=== PATIENT | male | born 1980 | race Caucasian/White ===

== ENCOUNTER 2016-10-05 08:48 | Emergency (ER) | payer OTHER ==
[2016-10-05 09:39] LABS: EOS # 0.1 K/mm3 (0.0-0.50); LARGE UNSTAINED CELL # 0.1 K/mm3 (0.0-0.4); NEUTROPHILS % 72.3 % (36.0-66.0); PLATELET COUNT, AUTOMATED 110 k/mm3 (150-450)
[2016-10-05 09:45] LABS: WHITE BLOOD COUNT 5.2 K/mm3 (4.0-10.0)
[2016-10-05 09:46] LABS: EOS % 1.1 % (0.0-3.0); LARGE UNSTAINED CELL % 2.4 % (0.0-4.0); LYMPH # 0.9 K/mm3 (1.5-4.5); LYMPH % 16.5 % (24.0-44.0); MEAN CORPUSCULAR HEMOGLOBIN 38.3 pg (27.0-33.0); MEAN CORPUSCULAR HGB CONC 36.3 g/dl (32.0-36.5); MEAN CORPUSCULAR VOLUME 105.6 fl (80.0-96.0); MONO % 6.7 % (0.0-5.0); NEUTROPHILS # 3.8 K/mm3 (1.8-7.7); RED CELL DISTRIBUTION WIDTH 15.7 % (11.5-14.5)
[2016-10-05 09:47] LABS: BASO # 0.1 K/mm3 (0.0-0.2); MONO # 0.4 K/mm3 (0.0-0.8)
--- NOTE | 2016-10-05 09:55 | REP ---
CT Head without contrast HISTORY: Trauma COMPARISON: None There is no intraparenchymal hemorrhage, acute infarct, mass or midline shift. The ventricular system is normal in appearance. There is no extra cerebral collection. There is no fracture. The visualized sinuses are clear. IMPRESSION: There is no intracranial lesion. Signed by Xu Alves MD 10/05/2016 09:46 A
[2016-10-05 09:59] LABS: ANION GAP 9 MEQ/L (8-16); BLOOD UREA NITROGEN 12 MG/DL (7-18); CALCIUM LEVEL 8.8 MG/DL (8.5-10.1); CARBON DIOXIDE LEVEL 30 MEQ/L (21-32); CHLORIDE LEVEL 99 MEQ/L (98-107); CREATININE FOR GFR 0.79 MG/DL (0.70-1.30); GLOMERULAR FILTRATION RATE > 60.0 (>60); GLUCOSE, FASTING 129 MG/DL (70-105); POTASSIUM SERUM 2.7 MEQ/L (3.5-5.1); SODIUM LEVEL 138 MEQ/L (136-145)
[2016-10-05] MEDS ORDERED: OXAZEPAM 15 MG CAP As Ordered ONE (10:18)
[2016-10-05 10:20] LABS: ALBUMIN 3.6 GM/DL (3.2-5.2); ALBUMIN/GLOBULIN RATIO 1.09 (1.00-1.93); ALKALINE PHOSPHATASE 100 U/L (45-117); ALT/SGPT 47 U/L (12-78); AST/SGOT 126 U/L (15-37); BILIRUBIN,DIRECT 0.7 MG/DL (0.0-0.2); BILIRUBIN,TOTAL 2.2 MG/DL (0.2-1.0); MAGNESIUM LEVEL 1.6 MG/DL (1.8-2.4); TOTAL PROTEIN 6.9 GM/DL (6.4-8.2)
[2016-10-05] MEDS ORDERED: KCL 10MEQ IN STERILE WATER 100ML As Ordered ONE (10:28)
[2016-10-05] MEDS ORDERED: POTASSIUM CHLORIDE 10 MEQ SR TABLET As Ordered ONE (10:29)
[2016-10-05 10:53] LABS: AMPHETAMINES LEVEL URINE NEGATIVE (NEGATIVE); BENZODIAZEPINES URINE NEGATIVE (NEGATIVE); COCAINE METABOLITE URINE NEGATIVE (NEGATIVE); CONTROL LINE INT CTR LINE PRESENT; METHADONE URINE NEGATIVE (NEGATIVE); OPIATES URINE NEGATIVE (NEGATIVE); TRICYCLIC ANTIDEPRESS URINE NEGATIVE (NEGATIVE)
[2016-10-05] MEDS ORDERED: MAGNESIUM SULFATE 1 GM/100 ML D5W BAG (10MG/ML) (J3475) As Ordered ONE (11:37)
[2016-10-05] MEDS ORDERED: THIAMINE HCL 200 MG/2 ML VIAL (J3411) As Ordered ONE (11:37)
--- NOTE | 2016-10-05 13:01 | ECGEPIP ---
Stationary ECG Study [facility] - ED Test Date: 2016-10-05 Pat Name: CALEB BARBOSA Department: Room: - Gender: M Pediatric Oncologist: kenia : 1980 Requested By: Audrey Loomis Order Number: [id number] Reading MD: Jose Hill Measurements Intervals [place] Rate: 89 P: 61 DE: 160 QRS: 17 QRSD: 108 T: 32 QT: 365 QTc: 446 Interpretive Statements SINUS RHYTHM Electronically Signed On 10-05-2016 13:01:30 EST by Jose Hill
--- NOTE | 2016-10-05 14:13 | EDDOCDS ---
Nurse's Notes [facility] Name: Caleb Barbosa Age: 36 yrs Sex: Male : 1980 Arrival Date: 10/05/2016 Time: 08:48 Bed 8 Private MD: MIBola GARCIA Diagnosis: Hypokalemia;Hypomagnesemia;Anemia, unspecified Presentation: 10/05 09:07 Presenting complaint: EMS states: called to patient's work. Pt allegedly "passed out". jc4 Adult Sepsis Screening: The patient does not have new or worsening altered mentation. Patient's respiratory rate is less than 22. Systolic blood pressure is greater than 100. Patient has a qSOFA score of 0- Negative Sepsis Screen. Suicide/Homicide risk assessment- the patient denies having any suicidal and/or homicidal ideations and does not present with any other emotional, behavioral or mental health complaints. Status: Patient is not a food services coordinator or dependent. Transition of care: patient was not received from another setting of care. Care prior to arrival: Saline lock initiated. Glucose check. 187 mg/dl. 09:07 Acuity: SARA Level 3 jc4 09:07 Method Of Arrival: Ambulance jc4 Triage Assessment: 09:09 General: Appears in no apparent distress. General: Pt states, "I woke up with someone jc4 from my duty looking at me. I've been on duty since yesterday morning". Pain: Denies pain. The patient is triaged at the bedside. See Assessment in Nurses Notes section of ED record. 14:12 HIV screening NA for this visit Offered previously. bcj Historical: - Allergies: no known allergies; - Home Meds: 1. none - PMHx: none; - PSHx: Appendectomy; - Social history: Smoking status: Chewing Tobacco No barriers to communication noted, The patient speaks fluent Syriac. - Family history: Not pertinent. - : The pt / caregiver states he / she is not on anticoagulants. Home medication list is obtained from the patient. - Exposure Risk Screening:: None identified. Screenin:11 Screening information is obtained from the patient. Fall risk: No risks identified. jc4 Assistance ADL's: requires no assistance with activities of daily living. Abuse/DV Screen: The patient / caregiver reports he/she is: not in a situation that causes fear, pain or injury. Nutritional screening: No deficits noted. Advance Directives: Currently, there is a health care proxy, Yaneth Barbosa, . home support is adequate. Assessment: 09:30 General: Appears in no apparent distress, comfortable, Behavior is cooperative. Pain: bcj Denies pain. Neurological: Level of Consciousness is awake, alert, Oriented to person, place, time, Residential Assistant are equal bilaterally Moves all extremities. Speech is normal, Facial symmetry appears normal, Pupils are PERRLA. Cardiovascular: Rhythm is sinus rhythm. Derm: Skin is pink, warm & dry. 10:43 General: Appears in no apparent distress, comfortable, Behavior is cooperative. Pain: bcj Denies pain. Neurological: Level of Consciousness is awake, alert, Oriented to person, place, time, Residential Assistant are equal bilaterally Moves all extremities. Gait is steady, Speech is normal. Cardiovascular: Rhythm is sinus rhythm. Derm: Skin is pink, warm & dry. 11:19 General: Appears in no apparent distress, comfortable, Behavior is cooperative. Pain: bcj Denies pain. Neurological: Level of Consciousness is awake, alert. Cardiovascular: Rhythm is sinus rhythm. Derm: Skin is pink, warm & dry. 14:08 General: Appears in no apparent distress, comfortable, Behavior is cooperative. Pain: bcj Denies pain. Neurological: Level of Consciousness is awake, alert, Oriented to person, place, time. Cardiovascular: Rhythm is sinus rhythm. Derm: Skin is pink, warm & dry. Social Work Consult: 13:46 Social Work Note: PSA met with pt at bedside. Pt reports drinking 4 shots of whiskey cs daily, since [facility], 9 years, has 2 young boys 1 YO and 3 YO, no DWI, no eye chalker soles, would say he has a problem, and he has never looked for professional help. Pt reports he does not believe his drinking is a problem at this time, and would at least take the referral sheet offered to him. Safe DC home , no safety issues noted at this time, support extended. Vital Signs: 08:59 BP 161 / 97; Pulse 103; Resp 18; Temp 99.8(TE); Pulse Ox 97% on R/A; Weight 83.46 kg rn1 (R); Height 75 in. (190.50 cm); Pain 0/10; 10:20 BP 155 / 91 (auto/); bcj 10:20 Pulse 82 MON; Pulse Ox 96% ; bcj 10:35 BP 158 / 92 (auto/); bcj 10:35 Pulse 86 MON; Pulse Ox 97% ; bcj 14:08 BP 139 / 79; Pulse 89; Resp 16; Temp 98.2(O); Pulse Ox 98% on R/A; Pain 0/10; bcj 08:59 Body Mass Index 23.00 (83.46 kg, 190.50 cm) rn1 Vitals: 09:09 Log In Time N/A - ambulance arrival. jc4 09:30 Refer to monitor trend for complete vital signs trends. [facility] ED Course: 08:50 Patient visited by Crystal Oliveros Eeler. lbd 08:50 ROBERTS CHAPELBola is Private Physician. lbd 08:50 Dana Araujo,RN is Primary Nurse. lbd 08:50 Patient moved to Waiting lbd 08:50 Patient moved to 8 lbd 08:52 Primary Nurse role handed off by Dana Araujo RN jc4 08:53 Rakesh Santoyo, RN is Primary Nurse. jc4 09:01 Audrey Loomis MD is Attending Physician. sd1 09:01 Patient visited by Audrey Loomis MD. sd1 09:09 Triage Initiated jc4 09:15 EKG done. (by ED staff). Reviewed by Audrey Loomis MD. jlf 09:16 Patient visited by Ryan Courtney PCA. jlf 09:28 MED Profile Sent. bcj 09:28 CBC with Diff Sent. bcj 09:30 Resting quietly. awaiting re-evaluation by ER physician. bcj 09:30 The patient / caregiver is instructed regarding the plan of care and ED course. Seizure bcj precautions initiated. 09:30 Maintain field IV. Site clean & dry. Gauge & site: 18ga LAC. Labs drawn. (by ED staff). bcj Sent per order to lab. 09:33 Patient visited by Rakesh Santoyo, ROSE. bcj 09:39 [facility] Payment Agreement was scanned into [employer] and attached to record. mm15 09:56 Patient visited by Ryan Courtney PCA. jlf 10:07 Notified attending ED physician of potassium of 2.7 as reported via phone by lab. jc4 10:38 CT Head Without Contrast Returned. EDMS 10:43 No apparent distress. Resting quietly. Awaiting disposition. bcj 10:43 vessel manager on. Pulse ox on. NIBP on. bcj 10:43 IV is intact. bcj 10:44 Patient visited by Rakesh Santoyo, RN. bcj 11:20 Patient visited by Rakesh Santoyo, ROSE. bcj 12:29 Patient visited by Denia Ramon PCA. ls3 12:57 Patient visited by Ryan Courtney PCA. jlf 13:43 ROBERTS CHAPEL, Bola Friend is Referral Physician. sd1 13:43 EKG-ADULT Returned. EDMS 13:51 PSA Outpatient Referrals was scanned into [employer] and attached to record. cs 14:08 No apparent distress. Resting quietly. Awaiting disposition. bcj 14:08 Discontinued lock intact. No procedures done that require assistance. bcj 14:12 Patient visited by Rakesh Santoyo RN. j Administered Medications: 10:21 Drug: Oxazepam 30 mg [oxazepam 15 mg capsule (2 caps)] Route: PO; pml 10:40 Drug: Potassium Chloride in 100cc sterile water 10 mEq [potassium chloride 10 mEq/100 bcj mL intravenous piggyback] {Co-Signature: pml (Sobia Park RN).} Route: IV; Rate: 100 mL/hr; Infused Over: 1 hrs; Site: left antecubital; 11:37 Follow up: IV Status: Completed infusion; IV Intake: 100ml jc4 10:41 Drug: Potassium Chloride 40 mEq [potassium chloride ER 10 mEq tablet,extended release bcj (4 tabs)] Route: PO; 11:45 Drug: Magnesium Sulfate 1 grams [magnesium sulfate 1 gram/100 mL in dextrose 5 % bcj intravenous piggyback] {Co-Signature: pml ([place] Park RN).} Route: IVPB; Infused Over: 1 hrs; Site: left antecubital; 12:42 Follow up: IV Status: Completed infusion; IV Intake: 100ml jc4 12:03 Drug: thiamine 100 mg Route: IM; Site: left deltoid; bcj Intake: 11:37 IV: 100.00ml; Total: 100.00ml. jc4 12:42 IV: 100.00ml; Total: 200.00ml. jc4 Order Results: Lab Order: CBC with Diff; SPEC'M 10/05/16 09:23 Test: WHITE BLOOD COUNT; Value: 5.2; Range: 4.0-10.0; Units: K/mm3; Status: F Test: RED BLOOD COUNT; Value: 2.72; Range: 4.30-6.10; Abnormal: Below low normal; Units: M/mm3; Status: F Test: HEMOGLOBIN; Value: 10.4; Range: 14.0-18.0; Abnormal: Below low normal; Units: g/dl; Status: F Test: HEMATOCRIT; Value: 28.8; Range: 42.0-52.0; Abnormal: Below low normal; Units: %; Status: F Test: MEAN CORPUSCULAR VOLUME; Value: 105.6; Range: 80.0-96.0; Abnormal: Above high normal; Units: fl; Status: F Test: MEAN CORPUSCULAR HEMOGLOBIN; Value: 38.3; Range: 27.0-33.0; Abnormal: Above high normal; Units: pg; Status: F Test: MEAN CORPUSCULAR HGB CONC; Value: 36.3; Range: 32.0-36.5; Units: g/dl; Status: F Test: RED CELL DISTRIBUTION WIDTH; Value: 15.7; Range: 11.5-14.5; Abnormal: Above high normal; Units: %; Status: F Test: PLATELET COUNT, AUTOMATED; Value: 110; Range: 150-450; Abnormal: Below low normal; Units: k/mm3; Status: F Test: NEUTROPHILS %; Value: 72.3; Range: 36.0-66.0; Abnormal: Above high normal; Units: %; Status: F Test: LYMPH %; Value: 16.5; Range: 24.0-44.0; Abnormal: Below low normal; Units: %; Status: F Test: MONO %; Value: 6.7; Range: 0.0-5.0; Abnormal: Above high normal; Units: %; Status: F Test: EOS %; Value: 1.1; Range: 0.0-3.0; Units: %; Status: F Test: BASO %; Value: 1.0; Range: 0.0-1.0; Units: %; Status: F Test: LARGE UNSTAINED CELL %; Value: 2.4; Range: 0.0-4.0; Units: %; Status: F Test: NEUTROPHILS #; Value: 3.8; Range: 1.8-7.7; Units: K/mm3; Status: F Test: LYMPH #; Value: 0.9; Range: 1.5-4.5; Abnormal: Below low normal; Units: K/mm3; Status: F Test: MONO #; Value: 0.4; Range: 0.0-0.8; Units: K/mm3; Status: F Test: EOS #; Value: 0.1; Range: 0.0-0.50; Units: K/mm3; Status: F Test: BASO #; Value: 0.1; Range: 0.0-0.2; Units: K/mm3; Status: F Test: LARGE UNSTAINED CELL #; Value: 0.1; Range: 0.0-0.4; Units: K/mm3; Status: F Lab Order: MED Profile; [facility] 10/05/16 09:23 Test: GLUCOSE, FASTING; Value: 129; Range: 70-105; Abnormal: Above high normal; Units: MG/DL; Status: F Test: BLOOD UREA NITROGEN; Value: 12; Range: 7-18; Units: MG/DL; Status: F Test: CREATININE FOR GFR; Value: 0.79; Range: 0.70-1.30; Units: MG/DL; Status: F Test: GLOMERULAR FILTRATION RATE; Value: > 60.0; Range: >60; Status: F Test: SODIUM LEVEL; Value: 138; Range: 136-145; Units: MEQ/L; Status: F Test: POTASSIUM SERUM; Value: 2.7; Range: 3.5-5.1; Abnormal: Critical Low; Units: MEQ/L; Status: F Test: CHLORIDE LEVEL; Value: 99; Range: 98-107; Units: MEQ/L; Status: F Test: CARBON DIOXIDE LEVEL; Value: 30; Range: 21-32; Units: MEQ/L; Status: F Test: ANION GAP; Value: 9; Range: 8-16; Units: MEQ/L; Status: F Test: CALCIUM LEVEL; Value: 8.8; Range: 8.5-10.1; Units: MG/DL; Status: F Test Note: ; Units are mL/min/1.73 m2 Chronic Kidney Disease Staging per NKF: Stage I & II GFR >=60 Normal to Mildly Decreased Stage III GFR 30-59 Moderately Decreased Stage IV GFR 15-29 Severely Decreased Stage V GFR <15 Very Little GFR Left ESRD GFR <15 on SENIOR JAVA UI DEVELOPER Lab Order: Urine Toxicology; SPEC'M 10/05/16 10:22 Test: AMPHETAMINES LEVEL URINE; Value: NEGATIVE; Range: NEGATIVE; Status: F Test: BARBITURATES URINE; Value: NEGATIVE; Range: NEGATIVE; Status: F Test: BENZODIAZEPINES URINE; Value: NEGATIVE; Range: NEGATIVE; Status: F Test: CANNABINOIDS URINE; Value: NEGATIVE; Range: NEGATIVE; Status: F Test: COCAINE METABOLITE URINE; Value: NEGATIVE; Range: NEGATIVE; Status: F Test: METHADONE URINE; Value: NEGATIVE; Range: NEGATIVE; Status: F Test: OPIATES URINE; Value: NEGATIVE; Range: NEGATIVE; Status: F Test: TRICYCLIC ANTIDEPRESS URINE; Value: NEGATIVE; Range: NEGATIVE; Status: F Test Note: ; ALL PRESUMPTIVE POSITIVE FINDINGS ARE UNCONFIRMED NORMAL VALUES THRESHOLD IN NG/ML AMPHETAMINES 1000 METHAMPHETAMINES 1000 BARBITURATES 300 BENZODIAZEPINES 300 CANNABINOIDS (THC) 50 COCAINE METABOLITE 300 METHADONE 300 OPIATES 300 PHENCYCLIDINE 25 TRICYCLIC ANTIDEPRESSANTS 1000 RESULTS ARE FOR MEDICAL PURPOSES ONLY. ALL URINE SPECIMENS WILL BE SAVED FOR 3 DAYS. IF CONFIRMATION OF A PRESUMPTIVE POSTIVE SCREEN RESULT IS DESIRED, CALL CHEMISTRY ([phone]) AND REQUEST URINE TO BE SENT TO REFERENCE LAB. FOR A LIST OF CLOSELY RELATED COMPOUNDS PLEASE CALL THE LAB. Lab Order: LIVER PROFILE; SPEC'M 10/05/16 09:23 Test: AST/SGOT; Value: 126; Range: 15-37; Abnormal: Above high normal; Units: U/L; Status: F Test: ALT/SGPT; Value: 47; Range: 12-78; Units: U/L; Status: F Test: ALKALINE PHOSPHATASE; Value: 100; Range: 45-117; Units: U/L; Status: F Test: BILIRUBIN,TOTAL; Value: 2.2; Range: 0.2-1.0; Abnormal: Above high normal; Units: MG/DL; Status: F Test: BILIRUBIN,DIRECT; Value: 0.7; Range: 0.0-0.2; Abnormal: Above high normal; Units: MG/DL; Status: F Test: TOTAL PROTEIN; Value: 6.9; Range: 6.4-8.2; Units: GM/DL; Status: F Test: ALBUMIN; Value: 3.6; Range: 3.2-5.2; Units: GM/DL; Status: F Test: ALBUMIN/GLOBULIN RATIO; Value: 1.09; Range: 1.00-1.93; Status: F Lab Order: MAGNESIUM LEVEL; SPEC'M 10/05/16 09:23 Test: MAGNESIUM LEVEL; Value: 1.6; Range: 1.8-2.4; Abnormal: Below low normal; Units: MG/DL; Status: F Radiology Order: CT Head Without Contrast Test: CT Head Without Contrast REASON FOR EXAMINATION: Trauma; CT Head without contrast; ; HISTORY: Trauma; ; COMPARISON: None; ; There is no intraparenchymal hemorrhage, acute infarct, mass or midline shift.; The ventricular system is normal in appearance. There is no extra cerebral; collection. There is no fracture. The visualized sinuses are clear.; ; IMPRESSION: There is no intracranial lesion.; ; ; ; ; Signed by; Xu Alves MD 10/05/2016 09:46 A; Radiology Order: EKG-ADULT Test: EKG-ADULT REASON FOR EXAMINATION: Syncope; Stationary ECG Study; [facility] - ED; ; Test Date: 2016-10-05; Pat Name: CALEB BARBOSA Department:; Room: -; Gender: M Birth Attendant: ; : 1980 Requested By: Audrey Loomis; Order Number: [id number] Reading MD: Jose Hill; Measurements; Intervals [place]; Rate: 89 P: 61; MA: 160 QRS: 17; QRSD: 108 T: 32; QT: 365; QTc: 446; Interpretive Statements; SINUS RHYTHM; ; Electronically Signed On 10-05-2016 13:01:30 EST by Jose Hill; Outcome: 13:44 Discharge ordered by Provider. sd1 14:08 Discharge Assessment: patient administered narcotics - no. The following High Risk bcj Discharge criteria are identified: None. Discharged to home ambulatory, with family. Condition: stable. Discharge instructions given to patient, Instructed on discharge instructions, follow up and referral plans. medication usage. CT Study completed. Property :Personal belongings accompany Pt. 14:12 Patient left the ED. [facility] Signatures: Dispatcher [employer] EDAudrey Sanchez MD MD sd1 Crystal Oliveros, Eeler Unit lbd Rakesh Santoyo, RN RN bcj Idris Spear, PSA PSA cs Christi Patel RN RN jc4 [place],ROSE RN pml Raad Murillo mm15 Ryan Courtney, FINANCIAL SERVICES MANAGER FINANCIAL SERVICES MANAGER jlf Gerard Samuel rn1 Denia Ramon, FINANCIAL SERVICES MANAGER FINANCIAL SERVICES MANAGER ls3 [place] RN pml MTDD
--- NOTE | 2016-10-05 14:14 | EDDOCDS ---
Physician Documentation [facility] Name: Tirso Rizo Age: 36 yrs Sex: Male : 1980 Arrival Date: 10/05/2016 Time: 08:48 Bed 8 Private MD: [facility], [place] Disposition: 10/05/16 13:44 Discharged to Home/Self Care. Impression: Hypokalemia, Hypomagnesemia, Anemia, unspecified. - Condition is Stable. - Discharge Instructions: Anemia, Nonspecific, Potassium Content of Foods, Hypomagnesemia, Malnutrition. - Medication Reconciliation, Local Pharmacy Hours form. - Follow up: On license of [facility]; When: 1 - 2 days. - Problem is new. - Symptoms are resolved. Historical: - Allergies: no known allergies; - Home Meds: 1. none - PMHx: none; - PSHx: Appendectomy; - Social history: Smoking status: Chewing Tobacco No barriers to communication noted, The patient speaks fluent Monegasque. - Family history: Not pertinent. - : The pt / caregiver states he / she is not on anticoagulants. Home medication list is obtained from the patient. - Exposure Risk Screening:: None identified. Vital Signs: 10/05 08:59 BP 161 / 97; Pulse 103; Resp 18; Temp 99.8(TE); Pulse Ox 97% on R/A; Weight 83.46 kg / rn1 184 lbs (R); Height 75 in. (190.50 cm); Pain 0/10; 10:20 BP 155 / 91 (auto/); bcj 10:20 Pulse 82 MON; Pulse Ox 96% ; bcj 10:35 BP 158 / 92 (auto/); bcj 10:35 Pulse 86 MON; Pulse Ox 97% ; bcj 14:08 BP 139 / 79; Pulse 89; Resp 16; Temp 98.2(O); Pulse Ox 98% on R/A; Pain 0/10; bcj 08:59 Body Mass Index 23.00 (83.46 kg, 190.50 cm) rn1 MDM: 09:09 IV Saline Lock ordered. sd1 09:09 Care Management Assistant/Pulse Ox/q 30 min VS ordered. sd1 09:10 CT Head Without Contrast Ordered. EDMS 09:10 ECG WITH READING ER PHYS+CARDIAG ordered. EDMS 09:11 CBC with Diff Ordered. EDMS 09:11 MED Profile Ordered. EDMS 09:11 Urine Toxicology Ordered. EDMS 09:34 Financial registration complete. mm15 09:39 [facility] Payment Agreement was scanned into [employer] and attached to record. mm15 09:53 CBC with Diff Reviewed. sd1 10:08 Potassium Chloride Extended Release Tablet 40 mEq PO once ordered. sd1 10:08 Potassium Chloride in 100cc sterile water 10 mEq IV at 100 mL/hr once over 1 hrs sd1 ordered. 10:09 LIVER PROFILE Ordered. EDMS 10:09 MAGNESIUM LEVEL Ordered. EDMS 10:11 Oxazepam 30 mg PO once ordered. sd1 10:57 MED Profile Reviewed. sd1 10:57 LIVER PROFILE Reviewed. sd1 10:57 MAGNESIUM LEVEL Reviewed. sd1 10:57 Urine Toxicology Reviewed. sd1 10:57 CT Head Without Contrast Reviewed. sd1 10:57 Magnesium Sulfate 1 grams IVPB once over 1 hrs; administer over at least 1 hour ordered.sd1 10:59 thiamine 100 mg IM once ordered. sd1 11:00 REGULAR+DIET ordered. EDMS 12:18 [facility] Order ordered. sd1 13:51 PSA Outpatient Referrals was scanned into [employer] and attached to record. cs Administered Medications: 10:21 Drug: Oxazepam 30 mg [oxazepam 15 mg capsule (2 caps)] Route: PO; pml 10:40 Drug: Potassium Chloride in 100cc sterile water 10 mEq [potassium chloride 10 mEq/100 bcj mL intravenous piggyback] {Co-Signature: pml (Sobia Park RN).} Route: IV; Rate: 100 mL/hr; Infused Over: 1 hrs; Site: left antecubital; 11:37 Follow up: IV Status: Completed infusion; IV Intake: 100ml jc4 10:41 Drug: Potassium Chloride 40 mEq [potassium chloride ER 10 mEq tablet,extended release bcj (4 tabs)] Route: PO; 11:45 Drug: Magnesium Sulfate 1 grams [magnesium sulfate 1 gram/100 mL in dextrose 5 % bcj intravenous piggyback] {Co-Signature: pml (Sobia Park RN).} Route: IVPB; Infused Over: 1 hrs; Site: left antecubital; 12:42 Follow up: IV Status: Completed infusion; IV Intake: 100ml jc4 12:03 Drug: thiamine 100 mg Route: IM; Site: left deltoid; [facility] Signatures: Dispatcher [employer] EDMS Audrey Loomis MD MD sd1 Rakesh Santoyo, RN RN bcj Idris Spear PSA PSA Christi Cavazos, RN RN jc4 Raad Murillo mm15 [place] RN pml [place] RN pml The chart was reviewed and I authenticate all verbal orders and agree with the evaluation and treatment provided.Corrections: (The following items were deleted from the chart) 10: 09:54 MAGNESIUM LEVEL+LAB ordered. EDMS EDMS 10: 09:55 LIVER PROFILE+LAB ordered. EDMS EDMS Attachments: 09:39 [facility] Payment Agreement mm15 MTDD
--- NOTE | 2016-10-07 15:13 | EDDOCDS ---
Nurse's Notes [facility] Name: Caleb Rizo Age: 36 yrs Sex: Male : 1980 Arrival Date: 10/05/2016 Time: 08:48 Bed 8 Private MD: TNBola GARCIA Diagnosis: Hypokalemia;Hypomagnesemia;Anemia, unspecified Presentation: 10/05 09:07 Presenting complaint: EMS states: called to patient's work. Pt allegedly "passed out". jc4 Adult Sepsis Screening: The patient does not have new or worsening altered mentation. Patient's respiratory rate is less than 22. Systolic blood pressure is greater than 100. Patient has a qSOFA score of 0- Negative Sepsis Screen. Suicide/Homicide risk assessment- the patient denies having any suicidal and/or homicidal ideations and does not present with any other emotional, behavioral or mental health complaints. 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 Transition of care: patient was not received from another setting of care. Care prior to arrival: Saline lock initiated. Glucose check. 187 mg/dl. 09:07 Acuity: SARA Level 3 jc4 09:07 Method Of Arrival: Ambulance jc4 Triage Assessment: 09:09 General: Appears in no apparent distress. General: Pt states, "I woke up with someone jc4 from my duty looking at me. I've been on duty since yesterday morning". Pain: Denies pain. The patient is triaged at the bedside. See Assessment in Nurses Notes section of ED record. 14:12 HIV screening NA for this visit Offered previously. bcj Historical: - Allergies: no known allergies; - Home Meds: 1. none - PMHx: none; - PSHx: Appendectomy; - Social history: Smoking status: Chewing Tobacco No barriers to communication noted, The patient speaks fluent Irish. - Family history: Not pertinent. - : The pt / caregiver states he / she is not on anticoagulants. Home medication list is obtained from the patient. - Exposure Risk Screening:: None identified. Screenin:11 Screening information is obtained from the patient. Fall risk: No risks identified. jc4 Assistance ADL's: requires no assistance with activities of daily living. Abuse/DV Screen: The patient / caregiver reports he/she is: not in a situation that causes fear, pain or injury. Nutritional screening: No deficits noted. Advance Directives: Currently, there is a health care proxy, Yaneth Rizo, . home support is adequate. Assessment: 09:30 General: Appears in no apparent distress, comfortable, Behavior is cooperative. Pain: bcj Denies pain. Neurological: Level of Consciousness is awake, alert, Oriented to person, place, time, Legal Counsel are equal bilaterally Moves all extremities. Speech is normal, Facial symmetry appears normal, Pupils are PERRLA. Cardiovascular: Rhythm is sinus rhythm. Derm: Skin is pink, warm & dry. 10:43 General: Appears in no apparent distress, comfortable, Behavior is cooperative. Pain: bcj Denies pain. Neurological: Level of Consciousness is awake, alert, Oriented to person, place, time, Legal Counsel are equal bilaterally Moves all extremities. Gait is steady, Speech is normal. Cardiovascular: Rhythm is sinus rhythm. Derm: Skin is pink, warm & dry. 11:19 General: Appears in no apparent distress, comfortable, Behavior is cooperative. Pain: bcj Denies pain. Neurological: Level of Consciousness is awake, alert. Cardiovascular: Rhythm is sinus rhythm. Derm: Skin is pink, warm & dry. 14:08 General: Appears in no apparent distress, comfortable, Behavior is cooperative. Pain: bcj Denies pain. Neurological: Level of Consciousness is awake, alert, Oriented to person, place, time. Cardiovascular: Rhythm is sinus rhythm. Derm: Skin is pink, warm & dry. Social Work Consult: 13:46 Social Work Note: PSA met with pt at bedside. Pt reports drinking 4 shots of whiskey cs daily, since [facility], 8 years, has 2 young boys 1 YO and 3 YO, no DWI, no eye sumatra opener, would say he has a problem, and he has never looked for professional help. Pt reports he does not believe his drinking is a problem at this time, and would at least take the referral sheet offered to him. Safe DC home , no safety issues noted at this time, support extended. Vital Signs: 08:59 BP 161 / 97; Pulse 103; Resp 18; Temp 99.8(TE); Pulse Ox 97% on R/A; Weight 83.46 kg rn1 (R); Height 75 in. (190.50 cm); Pain 0/10; 10:20 BP 155 / 91 (auto/); bcj 10:20 Pulse 82 MON; Pulse Ox 96% ; bcj 10:35 BP 158 / 92 (auto/); bcj 10:35 Pulse 86 MON; Pulse Ox 97% ; bcj 14:08 BP 139 / 79; Pulse 89; Resp 16; Temp 98.2(O); Pulse Ox 98% on R/A; Pain 0/10; bcj 08:59 Body Mass Index 23.00 (83.46 kg, 190.50 cm) rn1 Vitals: 09:09 Log In Time N/A - ambulance arrival. jc4 09:30 Refer to monitor trend for complete vital signs trends. [facility] ED Course: 08:50 Patient visited by Crystal Oliveros Hourly Team Members. lbd 08:50 [facility] lbd 08:50 Dana Araujo,RN is Primary Nurse. lbd 08:50 Patient moved to Waiting lbd 08:50 Patient moved to 8 lbd 08:52 Primary Nurse role handed off by Dana Araujo RN jc4 08:53 Rakesh Santoyo, RN is Primary Nurse. jc4 09:01 Audrey Loomis MD is Attending Physician. sd1 09:01 Patient visited by Audrey Loomis MD. sd1 09:09 Triage Initiated jc4 09:15 EKG done. (by ED staff). Reviewed by Audrey Loomis MD. jlf 09:16 Patient visited by Ryan Courtney PCA. jlf 09:28 MED Profile Sent. bcj 09:28 CBC with Diff Sent. bcj 09:30 Resting quietly. awaiting re-evaluation by ER physician. bcj 09:30 The patient / caregiver is instructed regarding the plan of care and ED course. Seizure bcj precautions initiated. 09:30 Maintain field IV. Site clean & dry. Gauge & site: 18ga LAC. Labs drawn. (by ED staff). bcj Sent per order to lab. 09:33 Patient visited by Rakesh Santoyo, ROSE. bcj 09:39 [facility] Payment Agreement was scanned into [employer] and attached to record. mm15 09:56 Patient visited by Ryan Courtney PCA. jlf 10:07 Notified attending ED physician of potassium of 2.7 as reported via phone by lab. jc4 10:38 CT Head Without Contrast Returned. EDMS 10:43 No apparent distress. Resting quietly. Awaiting disposition. bcj 10:43 compliance monitor on. Pulse ox on. NIBP on. bcj 10:43 IV is intact. bcj 10:44 Patient visited by Rakesh Santoyo, ROSE. bcj 11:20 Patient visited by Rakesh Santoyo, ROSE. bcj 12:29 Patient visited by Denia Ramon PCA. ls3 12:57 Patient visited by Ryan Courtney PCA. jlf 13:43 [facility], Bola Friend is Referral Physician. sd1 13:43 EKG-ADULT Returned. EDMS 13:51 PSA Outpatient Referrals was scanned into [employer] and attached to record. cs 14:08 No apparent distress. Resting quietly. Awaiting disposition. bcj 14:08 Discontinued lock intact. No procedures done that require assistance. bcj 14:12 Patient visited by Rakesh Santoyo RN. [facility] 10/06 08:52 T-Sheet-- Draft Copy was scanned into [employer]star and attached to record. [facility] 08:52 ECG/EKG was scanned into [employer] and attached to record. [facility] Administered Medications: 10/05 10:21 Drug: Oxazepam 30 mg [oxazepam 15 mg capsule (2 caps)] Route: PO; pml 10:40 Drug: Potassium Chloride in 100cc sterile water 10 mEq [potassium chloride 10 mEq/100 bcj mL intravenous piggyback] {Co-Signature: kristin (Sobia Park RN).} Route: IV; Rate: 100 mL/hr; Infused Over: 1 hrs; Site: left antecubital; 11:37 Follow up: IV Status: Completed infusion; IV Intake: 100ml jc4 10:41 Drug: Potassium Chloride 40 mEq [potassium chloride ER 10 mEq tablet,extended release bcj (4 tabs)] Route: PO; 11:45 Drug: Magnesium Sulfate 1 grams [magnesium sulfate 1 gram/100 mL in dextrose 5 % bcj intravenous piggyback] {Co-Signature: kristin (Sobia Park RN).} Route: IVPB; Infused Over: 1 hrs; Site: left antecubital; 12:42 Follow up: IV Status: Completed infusion; IV Intake: 100ml jc4 12:03 Drug: thiamine 100 mg Route: IM; Site: left deltoid; j Intake: 11:37 IV: 100.00ml; Total: 100.00ml. jc4 12:42 IV: 100.00ml; Total: 200.00ml. jc4 Order Results: Lab Order: CBC with Diff; SPEC'M 10/05/16 09:23 Test: WHITE BLOOD COUNT; Value: 5.2; Range: 4.0-10.0; Units: K/mm3; Status: F Test: RED BLOOD COUNT; Value: 2.72; Range: 4.30-6.10; Abnormal: Below low normal; Units: M/mm3; Status: F Test: HEMOGLOBIN; Value: 10.4; Range: 14.0-18.0; Abnormal: Below low normal; Units: g/dl; Status: F Test: HEMATOCRIT; Value: 28.8; Range: 42.0-52.0; Abnormal: Below low normal; Units: %; Status: F Test: MEAN CORPUSCULAR VOLUME; Value: 105.6; Range: 80.0-96.0; Abnormal: Above high normal; Units: fl; Status: F Test: MEAN CORPUSCULAR HEMOGLOBIN; Value: 38.3; Range: 27.0-33.0; Abnormal: Above high normal; Units: pg; Status: F Test: MEAN CORPUSCULAR HGB CONC; Value: 36.3; Range: 32.0-36.5; Units: g/dl; Status: F Test: RED CELL DISTRIBUTION WIDTH; Value: 15.7; Range: 11.5-14.5; Abnormal: Above high normal; Units: %; Status: F Test: PLATELET COUNT, AUTOMATED; Value: 110; Range: 150-450; Abnormal: Below low normal; Units: k/mm3; Status: F Test: NEUTROPHILS %; Value: 72.3; Range: 36.0-66.0; Abnormal: Above high normal; Units: %; Status: F Test: LYMPH %; Value: 16.5; Range: 24.0-44.0; Abnormal: Below low normal; Units: %; Status: F Test: MONO %; Value: 6.7; Range: 0.0-5.0; Abnormal: Above high normal; Units: %; Status: F Test: EOS %; Value: 1.1; Range: 0.0-3.0; Units: %; Status: F Test: BASO %; Value: 1.0; Range: 0.0-1.0; Units: %; Status: F Test: LARGE UNSTAINED CELL %; Value: 2.4; Range: 0.0-4.0; Units: %; Status: F Test: NEUTROPHILS #; Value: 3.8; Range: 1.8-7.7; Units: K/mm3; Status: F Test: LYMPH #; Value: 0.9; Range: 1.5-4.5; Abnormal: Below low normal; Units: K/mm3; Status: F Test: MONO #; Value: 0.4; Range: 0.0-0.8; Units: K/mm3; Status: F Test: EOS #; Value: 0.1; Range: 0.0-0.50; Units: K/mm3; Status: F Test: BASO #; Value: 0.1; Range: 0.0-0.2; Units: K/mm3; Status: F Test: LARGE UNSTAINED CELL #; Value: 0.1; Range: 0.0-0.4; Units: K/mm3; Status: F Lab Order: MED Profile; SPEC'M 10/05/16 09:23 Test: GLUCOSE, FASTING; Value: 129; Range: 70-105; Abnormal: Above high normal; Units: MG/DL; Status: F Test: BLOOD UREA NITROGEN; Value: 12; Range: 7-18; Units: MG/DL; Status: F Test: CREATININE FOR GFR; Value: 0.79; Range: 0.70-1.30; Units: MG/DL; Status: F Test: GLOMERULAR FILTRATION RATE; Value: > 60.0; Range: >60; Status: F Test: SODIUM LEVEL; Value: 138; Range: 136-145; Units: MEQ/L; Status: F Test: POTASSIUM SERUM; Value: 2.7; Range: 3.5-5.1; Abnormal: Critical Low; Units: MEQ/L; Status: F Test: CHLORIDE LEVEL; Value: 99; Range: 98-107; Units: MEQ/L; Status: F Test: CARBON DIOXIDE LEVEL; Value: 30; Range: 21-32; Units: MEQ/L; Status: F Test: ANION GAP; Value: 9; Range: 8-16; Units: MEQ/L; Status: F Test: CALCIUM LEVEL; Value: 8.8; Range: 8.5-10.1; Units: MG/DL; Status: F Test Note: ; Units are mL/min/1.73 m2 Chronic Kidney Disease Staging per NKF: Stage I & II GFR >=60 Normal to Mildly Decreased Stage III GFR 30-59 Moderately Decreased Stage IV GFR 15-29 Severely Decreased Stage V GFR <15 Very Little GFR Left ESRD GFR <15 on SYSTEM MANAGER Lab Order: Urine Toxicology; SPEC'M 10/05/16 10:22 Test: AMPHETAMINES LEVEL URINE; Value: NEGATIVE; Range: NEGATIVE; Status: F Test: BARBITURATES URINE; Value: NEGATIVE; Range: NEGATIVE; Status: F Test: BENZODIAZEPINES URINE; Value: NEGATIVE; Range: NEGATIVE; Status: F Test: CANNABINOIDS URINE; Value: NEGATIVE; Range: NEGATIVE; Status: F Test: COCAINE METABOLITE URINE; Value: NEGATIVE; Range: NEGATIVE; Status: F Test: METHADONE URINE; Value: NEGATIVE; Range: NEGATIVE; Status: F Test: OPIATES URINE; Value: NEGATIVE; Range: NEGATIVE; Status: F Test: TRICYCLIC ANTIDEPRESS URINE; Value: NEGATIVE; Range: NEGATIVE; Status: F Test Note: ; ALL PRESUMPTIVE POSITIVE FINDINGS ARE UNCONFIRMED NORMAL VALUES THRESHOLD IN NG/ML AMPHETAMINES 1000 METHAMPHETAMINES 1000 BARBITURATES 300 BENZODIAZEPINES 300 CANNABINOIDS (THC) 50 COCAINE METABOLITE 300 METHADONE 300 OPIATES 300 PHENCYCLIDINE 25 TRICYCLIC ANTIDEPRESSANTS 1000 RESULTS ARE FOR MEDICAL PURPOSES ONLY. ALL URINE SPECIMENS WILL BE SAVED FOR 3 DAYS. IF CONFIRMATION OF A PRESUMPTIVE POSTIVE SCREEN RESULT IS DESIRED, CALL CHEMISTRY ([phone]) AND REQUEST URINE TO BE SENT TO REFERENCE LAB. FOR A LIST OF CLOSELY RELATED COMPOUNDS PLEASE CALL THE LAB. Lab Order: LIVER PROFILE; SPEC'M 10/05/16 09:23 Test: AST/SGOT; Value: 126; Range: 15-37; Abnormal: Above high normal; Units: U/L; Status: F Test: ALT/SGPT; Value: 47; Range: 12-78; Units: U/L; Status: F Test: ALKALINE PHOSPHATASE; Value: 100; Range: 45-117; Units: U/L; Status: F Test: BILIRUBIN,TOTAL; Value: 2.2; Range: 0.2-1.0; Abnormal: Above high normal; Units: MG/DL; Status: F Test: BILIRUBIN,DIRECT; Value: 0.7; Range: 0.0-0.2; Abnormal: Above high normal; Units: MG/DL; Status: F Test: TOTAL PROTEIN; Value: 6.9; Range: 6.4-8.2; Units: GM/DL; Status: F Test: ALBUMIN; Value: 3.6; Range: 3.2-5.2; Units: GM/DL; Status: F Test: ALBUMIN/GLOBULIN RATIO; Value: 1.09; Range: 1.00-1.93; Status: F Lab Order: MAGNESIUM LEVEL; SPEC'M 10/05/16 09:23 Test: MAGNESIUM LEVEL; Value: 1.6; Range: 1.8-2.4; Abnormal: Below low normal; Units: MG/DL; Status: F Radiology Order: CT Head Without Contrast Test: CT Head Without Contrast REASON FOR EXAMINATION: Trauma; CT Head without contrast; ; HISTORY: Trauma; ; COMPARISON: None; ; There is no intraparenchymal hemorrhage, acute infarct, mass or midline shift.; The ventricular system is normal in appearance. There is no extra cerebral; collection. There is no fracture. The visualized sinuses are clear.; ; IMPRESSION: There is no intracranial lesion.; ; ; ; ; Signed by; Xu Alves MD 10/05/2016 09:46 A; Radiology Order: EKG-ADULT Test: EKG-ADULT REASON FOR EXAMINATION: Syncope; Stationary ECG Study; [facility] - ED; ; Test Date: 2016-10-05; Pat Name: CALEB RIZO Department:; Room: -; Gender: M Certified Paralegal: kenia; : 1980 Requested By: Audrey Loomis; Order Number: [id number] Reading MD: Jose Hill; Measurements; Intervals [place]; Rate: 89 P: 61; [place]: 160 QRS: 17; QRSD: 108 T: 32; QT: 365; QTc: 446; Interpretive Statements; SINUS RHYTHM; ; Electronically Signed On 10-05-2016 13:01:30 EST by Jose Hill; Outcome: 13:44 Discharge ordered by Provider. sd1 14:08 Discharge Assessment: patient administered narcotics - no. The following High Risk [facility] Discharge criteria are identified: None. Discharged to home ambulatory, with family. Condition: stable. Discharge instructions given to patient, Instructed on discharge instructions, follow up and referral plans. medication usage. CT Study completed. Property :Personal belongings accompany Pt. 14:12 Patient left the ED. [facility] Signatures: Dispatcher [employer] EDMS Audrey Loomis MD MD sd1 Crystal Oliveros, Hourly Team Members Unit lbd Rakesh Santoyo, RN RN bcj Idris Spear, PSA PSA cs Christi Patel, RN RN Sobia Malin,RN RN pml Raad Murillo mm15 Ryan Courtney, HOOKER OFF HOOKER OFF marcelof Gerard Samuel rn1 Denia Ramon, HOOKER OFF HOOKER OFF ls3 Audrey Boyer RN pml Chart Complete [facility]
--- NOTE | 2016-10-07 15:13 | EDDOCDS ---
Physician Documentation [facility] Name: Tirso Rizo Age: 36 yrs Sex: Male : 1980 Arrival Date: 10/05/2016 Time: 08:48 Bed 8 Private MD: [facility], [place] Disposition: 10/05/16 13:44 Discharged to Home/Self Care. Impression: Hypokalemia, Hypomagnesemia, Anemia, unspecified. - Condition is Stable. - Discharge Instructions: Anemia, Nonspecific, Potassium Content of Foods, Hypomagnesemia, Malnutrition. - Medication Reconciliation, Local Pharmacy Hours form. - Follow up: [facility]; When: 1 - 2 days. - Problem is new. - Symptoms are resolved. Historical: - Allergies: no known allergies; - Home Meds: 1. none - PMHx: none; - PSHx: Appendectomy; - Social history: Smoking status: Chewing Tobacco No barriers to communication noted, The patient speaks fluent Polish. - Family history: Not pertinent. - : The pt / caregiver states he / she is not on anticoagulants. Home medication list is obtained from the patient. - Exposure Risk Screening:: None identified. Vital Signs: 10/05 08:59 BP 161 / 97; Pulse 103; Resp 18; Temp 99.8(TE); Pulse Ox 97% on R/A; Weight 83.46 kg / rn1 184 lbs (R); Height 75 in. (190.50 cm); Pain 0/10; 10:20 BP 155 / 91 (auto/); bcj 10:20 Pulse 82 MON; Pulse Ox 96% ; bcj 10:35 BP 158 / 92 (auto/); bcj 10:35 Pulse 86 MON; Pulse Ox 97% ; bcj 14:08 BP 139 / 79; Pulse 89; Resp 16; Temp 98.2(O); Pulse Ox 98% on R/A; Pain 0/10; bcj 08:59 Body Mass Index 23.00 (83.46 kg, 190.50 cm) rn1 MDM: 09:09 IV Saline Lock ordered. sd1 09:09 Pastry Finisher/Pulse Ox/q 30 min VS ordered. sd1 09:10 CT Head Without Contrast Ordered. EDMS 09:10 ECG WITH READING ER PHYS+CARDIAG ordered. EDMS 09:11 CBC with Diff Ordered. EDMS 09:11 MED Profile Ordered. EDMS 09:11 Urine Toxicology Ordered. EDMS 09:34 Financial registration complete. mm15 09:39 [facility] Payment Agreement was scanned into [employer] and attached to record. mm15 09:53 CBC with Diff Reviewed. sd1 10:08 Potassium Chloride Extended Release Tablet 40 mEq PO once ordered. sd1 10:08 Potassium Chloride in 100cc sterile water 10 mEq IV at 100 mL/hr once over 1 hrs sd1 ordered. 10:09 LIVER PROFILE Ordered. EDMS 10:09 MAGNESIUM LEVEL Ordered. EDMS 10:11 Oxazepam 30 mg PO once ordered. sd1 10:57 MED Profile Reviewed. sd1 10:57 LIVER PROFILE Reviewed. sd1 10:57 MAGNESIUM LEVEL Reviewed. sd1 10:57 Urine Toxicology Reviewed. sd1 10:57 CT Head Without Contrast Reviewed. sd1 10:57 Magnesium Sulfate 1 grams IVPB once over 1 hrs; administer over at least 1 hour ordered.sd1 10:59 thiamine 100 mg IM once ordered. sd1 11:00 REGULAR+DIET ordered. EDMS 12:18 [facility] ordered. sd1 13:51 PSA Outpatient Referrals was scanned into [employer] and attached to record. 10/06 08:52 T-Sheet-- Draft Copy was scanned into [employer] and attached to record. [facility] 08:52 ECG/EKG was scanned into [employer] and attached to record. [facility] Administered Medications: 10/05 10:21 Drug: Oxazepam 30 mg [oxazepam 15 mg capsule (2 caps)] Route: PO; pml 10:40 Drug: Potassium Chloride in 100cc sterile water 10 mEq [potassium chloride 10 mEq/100 bcj mL intravenous piggyback] {Co-Signature: pml (Sobia Park RN).} Route: IV; Rate: 100 mL/hr; Infused Over: 1 hrs; Site: left antecubital; 11:37 Follow up: IV Status: Completed infusion; IV Intake: 100ml jc4 10:41 Drug: Potassium Chloride 40 mEq [potassium chloride ER 10 mEq tablet,extended release bcj (4 tabs)] Route: PO; 11:45 Drug: Magnesium Sulfate 1 grams [magnesium sulfate 1 gram/100 mL in dextrose 5 % bcj intravenous piggyback] {Co-Signature: pml (Sobia Park RN).} Route: IVPB; Infused Over: 1 hrs; Site: left antecubital; 12:42 Follow up: IV Status: Completed infusion; IV Intake: 100ml jc4 12:03 Drug: thiamine 100 mg Route: IM; Site: left deltoid; [facility] Signatures: Dispatcher [employer] EDMS Audrey Loomis MD MD sd1 Rakesh Santoyo RN RN bcIdris Smith, JACQUE PSA Christi Cavazos RN RN jc4 Raad Murillo mm15 Audrey Boyer Paulina RN pml Paulina Quay RN pml The chart was reviewed and I authenticate all verbal orders and agree with the evaluation and treatment provided.Corrections: (The following items were deleted from the chart) 10: 09:54 MAGNESIUM LEVEL+LAB ordered. EDMS EDMS 10: 09:55 LIVER PROFILE+LAB ordered. EDMS EDMS Attachments: 09:39 [facility] Payment Agreement mm15 10/06 08:52 T-Sheet-- Draft Copy [facility] 08:52 ECG/EKG [facility] Chart Complete MTDD
--- NOTE | 2016-10-07 15:13 | EDDOCDS ---
Physician Documentation [facility] Name: Tirso Rizo Age: 36 yrs Sex: Male : 1980 Arrival Date: 10/05/2016 Time: 08:48 Bed 8 Private MD: [facility], [place] Disposition: 10/05/16 13:44 Discharged to Home/Self Care. Impression: Hypokalemia, Hypomagnesemia, Anemia, unspecified. - Condition is Stable. - Discharge Instructions: Anemia, Nonspecific, Potassium Content of Foods, Hypomagnesemia, Malnutrition. - Medication Reconciliation, Local Pharmacy Hours form. - [facility]; When: 1 - 2 days. - Problem is new. - Symptoms are resolved. Historical: - Allergies: no known allergies; - Home Meds: 1. none - PMHx: none; - PSHx: Appendectomy; - Social history: Smoking status: Chewing Tobacco No barriers to communication noted, The patient speaks fluent Polish. - Family history: Not pertinent. - : The pt / caregiver states he / she is not on anticoagulants. Home medication list is obtained from the patient. - Exposure Risk Screening:: None identified. Vital Signs: 10/05 08:59 BP 161 / 97; Pulse 103; Resp 18; Temp 99.8(TE); Pulse Ox 97% on R/A; Weight 83.46 kg / rn1 184 lbs (R); Height 75 in. (190.50 cm); Pain 0/10; 10:20 BP 155 / 91 (auto/); bcj 10:20 Pulse 82 MON; Pulse Ox 96% ; bcj 10:35 BP 158 / 92 (auto/); bcj 10:35 Pulse 86 MON; Pulse Ox 97% ; bcj 14:08 BP 139 / 79; Pulse 89; Resp 16; Temp 98.2(O); Pulse Ox 98% on R/A; Pain 0/10; bcj 08:59 Body Mass Index 23.00 (83.46 kg, 190.50 cm) rn1 MDM: 09:09 IV Saline Lock ordered. sd1 09:09 Kindergarten Aide/Pulse Ox/q 30 min VS ordered. sd1 09:10 CT Head Without Contrast Ordered. EDMS 09:10 ECG WITH READING ER PHYS+CARDIAG ordered. EDMS 09:11 CBC with Diff Ordered. EDMS 09:11 MED Profile Ordered. EDMS 09:11 Urine Toxicology Ordered. EDMS 09:34 Financial registration complete. mm15 09:39 [facility] Payment Agreement was scanned into [employer] and attached to record. mm15 09:53 CBC with Diff Reviewed. sd1 10:08 Potassium Chloride Extended Release Tablet 40 mEq PO once ordered. sd1 10:08 Potassium Chloride in 100cc sterile water 10 mEq IV at 100 mL/hr once over 1 hrs sd1 ordered. 10:09 LIVER PROFILE Ordered. EDMS 10:09 MAGNESIUM LEVEL Ordered. EDMS 10:11 Oxazepam 30 mg PO once ordered. sd1 10:57 MED Profile Reviewed. sd1 10:57 LIVER PROFILE Reviewed. sd1 10:57 MAGNESIUM LEVEL Reviewed. sd1 10:57 Urine Toxicology Reviewed. sd1 10:57 CT Head Without Contrast Reviewed. sd1 10:57 Magnesium Sulfate 1 grams IVPB once over 1 hrs; administer over at least 1 hour ordered.sd1 10:59 thiamine 100 mg IM once ordered. sd1 11:00 REGULAR+DIET ordered. EDMS 12:18 [facility]. sd1 13:51 PSA Outpatient Referrals was scanned into [employer] and attached to record. 10/06 08:52 T-Sheet-- Draft Copy was scanned into [employer] and attached to record. [facility] 08:52 ECG/EKG was scanned into [employer] and attached to record. [facility] Administered Medications: 10/05 10:21 Drug: Oxazepam 30 mg [oxazepam 15 mg capsule (2 caps)] Route: PO; pml 10:40 Drug: Potassium Chloride in 100cc sterile water 10 mEq [potassium chloride 10 mEq/100 bcj mL intravenous piggyback] {Co-Signature: pml (Sobia Park RN).} Route: IV; Rate: 100 mL/hr; Infused Over: 1 hrs; Site: left antecubital; 11:37 Follow up: IV Status: Completed infusion; IV Intake: 100ml jc4 10:41 Drug: Potassium Chloride 40 mEq [potassium chloride ER 10 mEq tablet,extended release bcj (4 tabs)] Route: PO; 11:45 Drug: Magnesium Sulfate 1 grams [magnesium sulfate 1 gram/100 mL in dextrose 5 % bcj intravenous piggyback] {Co-Signature: pml (Sobia Park RN).} Route: IVPB; Infused Over: 1 hrs; Site: left antecubital; 12:42 Follow up: IV Status: Completed infusion; IV Intake: 100ml jc4 12:03 Drug: thiamine 100 mg Route: IM; Site: left deltoid; [facility] Signatures: Dispatcher [employer] EDMS Audrey Loomis MD MD sd1 Rakesh Santoyo RN RN bcIdris Smith, JACQUE PSA Christi Cavazos RN RN jc4 Raad Murillo mm15 Audrey Boyer Paulina RN pml Paulina Quay RN pml The chart was reviewed and I authenticate all verbal orders and agree with the evaluation and treatment provided.Corrections: (The following items were deleted from the chart) 10: 09:54 MAGNESIUM LEVEL+LAB ordered. EDMS EDMS 10: 09:55 LIVER PROFILE+LAB ordered. EDMS EDMS Attachments: 09:39 [facility] Payment Agreement mm15 10/06 08:52 T-Sheet-- Draft Copy [facility] 08:52 ECG/EKG [facility] Chart Complete MTDD
== END 2016-10-05 14:12 | disposition home or self-care (01) ==
LOC: M ED 08:48
DX: E87.6 Hypokalemia (principal); E83.42 Hypomagnesemia; D64.9 Anemia, unspecified; F10.20 Alcohol dependence, uncomplicated; F17.220 Nicotine dependence, chewing tobacco, uncomplicated
CPT/HCPCS: 36415; 70450; 80048; 80076; 80306; 83735; 85025; 93005; 93041; 96365; 96367; 96372; 99285; J3411; J3475

== ENCOUNTER 2016-11-26 09:28 | Emergency (ER) | payer OTHER ==
[~2016-11-26] VITALS: Ht 188 cm; Wt 82.6 kg
[2016-11-26] MEDS ORDERED: LISI-538 PO (10:16)
[2016-11-26] MEDS ORDERED: MULTIVITAMIN -ADULT INJECTION 10 ML, THIAMINE INJection 100 MG, FOLIC ACID 1 MG in NS 1... IV ONE (12:30)
--- NOTE | 2016-11-26 13:25 | REP ---
RIGHT UPPER QUADRANT SONOGRAPHY: HISTORY: Jaundice, anorexia, alcoholism. Comparison is made with CT study of the chest from April 12, 2016. CT FINDINGS: Scanning through the right upper quadrant of the abdomen demonstrates somewhat dilated gallbladder containing some sludge. There was no tenderness to scanning over the gallbladder. The gallbladder wall is not visibly thickened. Common bile duct is normal at 0.7 cm in greatest diameter. The liver is enlarged measuring 20.0 cm in craniocaudal span in the midclavicular line. There is poor insonation of the liver and increased echogenicity in the liver, consistent with fatty infiltration. The CT study from March 2016 showed diffuse moderate fatty infiltration of the liver. No focal liver mass lesion is seen. Limited views of the pancreas show no abnormality. There is no visible ascites. No right renal abnormality is seen. The right kidney measures 12.2 x 6.2 x 5.2 cm. IMPRESSION: Fatty infiltration of the liver. Somewhat distended 11.9 cm gallbladder containing sludge but no stones. No tenderness to scanning over the gallbladder. Hepatomegaly. Otherwise negative. Signed by Sp Christianson MD 11/26/2016 02:33 P
[2016-11-26 13:28] LABS: BASO % 0.9 % (0.0-1.0); EOS % 0.9 % (0.0-3.0); LARGE UNSTAINED CELL # 0.2 K/mm3 (0.0-0.4); LYMPH # 1.3 K/mm3 (1.5-4.5); LYMPH % 28.3 % (24.0-44.0); MEAN CORPUSCULAR HEMOGLOBIN 34.1 pg (27.0-33.0); MEAN CORPUSCULAR HGB CONC 33.2 g/dl (32.0-36.5); MONO # 0.4 K/mm3 (0.0-0.8); MONO % 8.5 % (0.0-5.0); NEUTROPHILS # 2.5 K/mm3 (1.8-7.7); NEUTROPHILS % 56.4 % (36.0-66.0); PLATELET COUNT, AUTOMATED 101 k/mm3 (150-450); RED CELL DISTRIBUTION WIDTH 16.1 % (11.5-14.5); WHITE BLOOD COUNT 4.4 K/mm3 (4.0-10.0)
[2016-11-26 13:34] LABS: INR 1.11
[2016-11-26 13:51] LABS: ALBUMIN 2.4 GM/DL (3.2-5.2); ALKALINE PHOSPHATASE 400 U/L (45-117); ALT/SGPT 155 U/L (12-78); AMYLASE 33 U/L (25-115); ANION GAP 9 MEQ/L (8-16); AST/SGOT 382 U/L (15-37); BILIRUBIN,DIRECT 3.4 MG/DL (0.0-0.2); BILIRUBIN,TOTAL 4.4 MG/DL (0.2-1.0); BLOOD UREA NITROGEN 8 MG/DL (7-18); CALCIUM LEVEL 7.7 MG/DL (8.5-10.1); CARBON DIOXIDE LEVEL 30 MEQ/L (21-32); CHLORIDE LEVEL 99 MEQ/L (98-107); CREATININE FOR GFR 0.66 MG/DL (0.70-1.30); GLOMERULAR FILTRATION RATE > 60.0 (>60); GLUCOSE, FASTING 105 MG/DL (70-105); POTASSIUM SERUM 3.7 MEQ/L (3.5-5.1); SODIUM LEVEL 138 MEQ/L (136-145); TOTAL PROTEIN 6.4 GM/DL (6.4-8.2)
[2016-11-26 15:41] VITALS: BP 128/85
--- NOTE | 2016-11-26 20:48 | ECGEPIP ---
Stationary ECG Study [facility] - ED Test Date: 2016-11-26 Pat Name: CALEB BARBOSA Department: Room: - Gender: M [employer]: rn : 1980 Requested By: TIMOTHY KHAN PA-C. Order Number: [id number] Reading MD: Jose Hill Measurements Intervals [place] Rate: 59 P: 12 VT: 132 QRS: 35 QRSD: 121 T: 43 QT: 416 QTc: 413 Interpretive Statements SINUS BRADYCARDIA Electronically Signed On 11-26-2016 20:48:26 EST by Jose Hill
== END 2016-11-26 15:47 | disposition home or self-care (01) ==
LOC: M ED 11:12
DX: K70.10 Alcoholic hepatitis without ascites (principal); F10.10 Alcohol abuse, uncomplicated; D53.9 Nutritional anemia, unspecified; D69.6 Thrombocytopenia, unspecified; K76.0 Fatty (change of) liver, not elsewhere classified; I10 Essential (primary) hypertension; R16.0 Hepatomegaly, not elsewhere classified; Z79.899 Other long term (current) drug therapy
CPT/HCPCS: 76705; 80048; 80076; 81001; 82140; 82150; 83690; 83735; 85025; 85610; 93005; 96365; 96366; 99283; J3411

== ENCOUNTER → 2020-12-09 | Outpatient (CLI) | payer OTHER ==
[~2020-12-09] MED LIST: LISI20TA33 PO
[2020-12-09 10:18] LABS: HEMOGLOBIN 15.8 g/dl (13.5-17.5); MEAN CORPUSCULAR HEMOGLOBIN 33.2 pg (27.0-33.0); MEAN CORPUSCULAR HGB CONC 34.3 g/dl (32.0-36.5); MEAN CORPUSCULAR VOLUME 96.6 fl (80.0-96.0); PLATELET COUNT, AUTOMATED 140 10^3/uL (150-450); RED BLOOD COUNT 4.76 10^6/uL (4.30-6.10)
[2020-12-09 10:24] LABS: INR 0.97
[2020-12-09 10:51] LABS: ALBUMIN 3.9 GM/DL (3.2-5.2); ALT/SGPT 73 U/L (12-78); BILIRUBIN,TOTAL 0.4 MG/DL (0.2-1.0); BLOOD UREA NITROGEN 9 MG/DL (7-18); CARBON DIOXIDE LEVEL 30 MEQ/L (21-32); CHLORIDE LEVEL 101 MEQ/L (98-107); CREATININE FOR GFR 0.62 MG/DL (0.70-1.30); GLOMERULAR FILTRATION RATE > 60.0 (>60); GLUCOSE, FASTING 100 MG/DL (70-100); SODIUM LEVEL 137 MEQ/L (136-145); TOTAL PROTEIN 8.6 GM/DL (6.4-8.2)
== END ==
LOC: M LAB 09:25
PROVIDERS: ATTEND Nurse Practitioner Family
DX: K70.30 Alcoholic cirrhosis of liver without ascites (principal); I85.00 Esophageal varices without bleeding
CPT/HCPCS: 36415; 80053; 82105; 85027; 85610; U0003

== ENCOUNTER → 2020-12-09 | Outpatient (CLI) | payer OTHER | LOC: M LABSMTC 10:11 | PROVIDERS: ATTEND Internal Medicine Gastroenterology | DX: Z11.52 Encounter for screening for COVID-19 (principal) ==

== ENCOUNTER → 2020-12-13 | Outpatient (CLI) | payer OTHER ==
--- NOTE | 2020-12-13 11:43 | REP ---
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 COMPARISON: 09/04/2019. TECHNIQUE: Multiple sonographic images of the abdominal right upper quadrant. FINDINGS: The gallbladder is distended. There is no cholelithiasis. There is no gallbladder wall thickening. No pericholecystic fluid. There is no intrahepatic biliary duct dilatation. The common biliary duct measures up to 8 mm in transverse diameter, minimally distended. It measures 5 mm in diameter previously. The hepatic parenchyma is hyperechoic, as previously, compatible with the clinical diagnosis of cirrhosis. There are no hepatic masses or cysts. The pancreas is partially obscured by bowel gas. The visualized areas of the pancreas are unremarkable. The right kidney is normal size measuring 11.4 x 7.3 x 6.1 cm. There is no right renal solid or cystic mass. There is no right renal calculus or hydronephrosis. There is no right upper quadrant free fluid. IMPRESSION: Echogenic hepatic echotexture, as previously, compatible with cirrhosis. There are no hepatic masses or cysts. There is no right upper quadrant free fluid. The common biliary duct is mildly dilated as an interval change measuring up to 8 mm in diameter. There is no intrahepatic biliary duct dilatation. The gallbladder is distended but otherwise unremarkable. There is no cholelithiasis. There are limited views of the pancreas. The pancreas is mostly obscured by bowel gas. <Electronically signed by Felipe Loera > 12/13/20 [id number]
== END ==
LOC: M RAD 09:26
PROVIDERS: ATTEND Internal Medicine Gastroenterology
DX: K70.30 Alcoholic cirrhosis of liver without ascites (principal); I85.00 Esophageal varices without bleeding

== ENCOUNTER → 2021-01-13 | Outpatient (CLI) | payer OTHER ==
[~2021-01-13] MED LIST changes: +PROHANCE 279.3MG/ML 15ML VIAL As Ordered ONE; +PROHANCE 279.3MG/ML 5ML VIAL As Ordered ONE
[2021-01-13 18:23] LABS: ALBUMIN 3.8 GM/DL (3.2-5.2); ALT/SGPT 175 U/L (12-78); BILIRUBIN,TOTAL 1.7 MG/DL (0.2-1.0); BLOOD UREA NITROGEN 4 MG/DL (7-18); CALCIUM LEVEL 9.3 MG/DL (8.5-10.1); CARBON DIOXIDE LEVEL 29 MEQ/L (21-32); CHLORIDE LEVEL 98 MEQ/L (98-107); CREATININE FOR GFR 0.62 MG/DL (0.70-1.30); GLOMERULAR FILTRATION RATE > 60.0 (>60); GLUCOSE, FASTING 98 MG/DL (70-100); POTASSIUM SERUM 3.5 MEQ/L (3.5-5.1); SODIUM LEVEL 134 MEQ/L (136-145); TOTAL PROTEIN 8.4 GM/DL (6.4-8.2)
--- NOTE | 2021-01-16 09:25 | REP ---
INDICATION: CIRRHOSIS. COMPARISON: Comparison right upper quadrant sonography [address] study February 06, 2017.. TECHNIQUE: Pre and post gadolinium enhanced imaging is performed. The gadolinium enhancement dose is 20 mL of intravenous ProHance. T1 and T2 weighted axial and coronal sequences include spin echo, fast spin echo, diffusion-weighted scans, gradient echo, in and out of phase, and dynamically acquired sequential postcontrast images with T1 fat sat technique. FINDINGS: The liver remains somewhat enlarged with a midclavicular vertical span of 19.7 cm. No focal hepatic lesion is seen. The spleen is near the upper range of normal in size measuring 12.5 cm in greatest diameter. There is no evidence of ascites. Granular low signal intensity material is seen in the dependent portion the gallbladder consistent with previously noted gallstones. No biliary ductal dilation is seen. Diffusion-weighted scans are unremarkable. There is moderate signal loss in the liver on out of phase images diffusely consistent with fatty infiltration. Normal adrenal glands and unremarkable kidneys are seen. No pancreatic mass or abnormal contrast enhancement is seen. No visceral vascular abnormality is appreciated. IMPRESSION: Findings consistent with moderate diffuse fatty infiltration of the liver and hepatomegaly. No focal liver lesion is seen. There is no evidence of ascites or visceral vascular abnormality. <Electronically signed by Jonah Christianson > 01/16/21 [id number]
== END ==
LOC: M RAD 16:21
PROVIDERS: ATTEND Internal Medicine Gastroenterology
DX: K74.60 Unspecified cirrhosis of liver (principal)

== ENCOUNTER 2021-11-24 10:01 | Emergency (ER) | payer OTHER ==
[~2021-11-24] VITALS: Ht 190.5 cm; Wt 111.4 kg
[~2021-11-24 10:01] MED LIST changes: -PROHANCE 279.3MG/ML 15ML VIAL As Ordered ONE; -PROHANCE 279.3MG/ML 5ML VIAL As Ordered ONE
[2021-11-24] MEDS ORDERED: OMEP40CA5 PO (10:19)
[2021-11-24] MEDS ORDERED: METO1TAB32 PO (10:19)
[2021-11-24 10:47] LABS: BASO % 0.4 % (0.0-1.0); EOS # 0.1 10^3/uL (0.0-0.5); EOS % 0.5 % (0.0-3.0); HEMATOCRIT 43.9 % (42.0-52.0); HEMOGLOBIN 15.2 g/dl (13.5-17.5); LYMPH # 0.7 10^3/uL (1.5-5.0); MEAN CORPUSCULAR HEMOGLOBIN 33.6 pg (27.0-33.0); MEAN CORPUSCULAR HGB CONC 34.6 g/dl (32.0-36.5); MEAN CORPUSCULAR VOLUME 97.1 fl (80.0-96.0); MONO % 16.9 % (2.0-8.0); NEUTROPHILS # 7.8 10^3/uL (1.5-8.5); NEUTROPHILS % 74.4 % (36.0-66.0); PLATELET COUNT, AUTOMATED 108 10^3/uL (150-450); RED BLOOD COUNT 4.52 10^6/uL (4.30-6.10); WHITE BLOOD COUNT 10.4 10^3/uL (4.0-10.0)
[2021-11-24 10:49] LABS: MONO # 1.8 10^3/uL (0.0-0.8)
[2021-11-24 10:53] LABS: ALBUMIN 3.6 GM/DL (3.2-5.2); ALT/SGPT 81 U/L (12-78); BILIRUBIN,DIRECT 0.4 MG/DL (0.0-0.2); BLOOD UREA NITROGEN 8 MG/DL (7-18); CALCIUM LEVEL 9.5 MG/DL (8.5-10.1); CARBON DIOXIDE LEVEL 25 MEQ/L (21-32); CHLORIDE LEVEL 96 MEQ/L (98-107); CREATININE FOR GFR 0.78 MG/DL (0.70-1.30); GLOMERULAR FILTRATION RATE > 60.0 (>60); GLUCOSE, FASTING 130 MG/DL (70-100); LIPASE 128 U/L (73-393); POTASSIUM SERUM 3.5 MEQ/L (3.5-5.1); SODIUM LEVEL 130 MEQ/L (136-145); TOTAL PROTEIN 9.1 GM/DL (6.4-8.2)
[2021-11-24 11:00] LABS: CK-MB VALUE MASS < 1.0 NG/ML (<3.6); CPK CREATINE PHOSPHOKINASE 209 U/L (39-308); MB/CK RELATIVE INDEX 0.48 (< OR =4)
[2021-11-24 11:01] LABS: INR 1.21; PROTHROMBIN TIME 15.7 SECONDS (12.7-14.5)
[2021-11-24] MEDS ORDERED: ISOVUE-370 76% 100ML VIAL As Ordered ONE (12:31)
[2021-11-24] MEDS ORDERED: SUCR1TA PO (14:36)
[2021-11-24 14:45] VITALS: BP 155/99
== END 2021-11-24 15:03 | disposition home or self-care (01) ==
LOC: M ED 10:01
DX: K29.20 Alcoholic gastritis without bleeding (principal); F10.10 Alcohol abuse, uncomplicated; K21.9 Gastro-esophageal reflux disease without esophagitis; Z79.899 Other long term (current) drug therapy
CPT/HCPCS: 36415; 71045; 71275; 80048; 80076; 82077; 82550; 82553; 83690; 84484; 85025; 85610; 93005; 93041; 94760; 99285; Q9967

== ENCOUNTER → 2022-01-22 | Outpatient (REF) ==
[~2022-01-22] MED LIST changes: +METO1TAB32 PO; +OMEP40CA5 PO; +SUCR1TA PO
== END ==
LOC: M PLAIMG 11:07
PROVIDERS: ATTEND Internal Medicine
DX: R06.02 Shortness of breath (principal)

== ENCOUNTER → 2022-05-24 | Outpatient (CLI) | payer OTHER | LOC: M RAD 07:28 | PROVIDERS: ATTEND Physician Assistant | DX: K70.30 Alcoholic cirrhosis of liver without ascites (principal); R16.0 Hepatomegaly, not elsewhere classified; K80.20 Calculus of gallbladder without cholecystitis without obstruction ==